=== PATIENT | female | born 1965 | race African-American/Black ===

== ENCOUNTER 2016-04-17 21:38 | Emergency (ER) | payer BC ==
[~2016-04-17] VITALS: Ht 175.3 cm; Wt 97.5 kg
[2016-04-17] MEDS ORDERED: BENZONATATE 100 MG CAPSULE. PO ONE ×2 (21:58→22:00)
[2016-04-17] MEDS ORDERED: ACETAMINOPHEN 500 MG TABLET PO ONE (22:00)
--- NOTE | 2016-04-17 22:11 | PHYS DOC ---
Adult General Chief Complaint Chief Complaint: COUGH HPI HPI Patient is a 50 year old female who presents with cough, generalized fatigue, fevers, and body aches which started yesterday. Due to worsening symptoms, the patient came to the emergency department for evaluation. Patient states that she has history of hypertension but no other significant health problems. Patient states that her temperature was 103F at home. Patient took ibuprofen prior to arrival. Patient has had nonproductive cough. Patient denies shortness of breath or chest pain currently. Patient denies any nausea or vomiting. Patient rates the pain related to her body aches as 8 out of 10 on my evaluation. Review of Systems Review of Systems Constitutional: Fever, chills [] Eyes: Denies change in visual acuity, redness, or eye pain [] HENT: Sore throat [] Respiratory: Cough, denies shortness of breath [] Cardiovascular: Denies chest pain or edema [] GI: Denies abdominal pain, nausea, vomiting, bloody stools or diarrhea [] : Denies dysuria or hematuria [] Musculoskeletal: Body aches, Denies back pain or joint pain [] Integument: Denies rash or skin lesions [] Neurologic: Headache, denies focal weakness or sensory changes [] Endocrine: Denies polyuria or polydipsia [] Current Medications Current Medications Current Medications Medications (Trade) Dose Ordered Sig/Naheed Start Time Stop Time Status Last Admin Dose Admin Acetaminophen (Tylenol) 1,000 mg 1X ONCE 04/17/16 22:00 04/17/16 22:20 DC 04/17/16 22:13 1,000 MG Benzonatate (Tessalon Perle) 200 mg 1X ONCE 04/17/16 22:00 04/17/16 22:20 DC 04/17/16 22:13 200 MG Oseltamivir Phosphate (Tamiflu) 75 mg 1X ONCE 04/17/16 22:45 04/17/16 22:46 DC 04/17/16 22:52 75 MG Allergies Allergies Allergies Coded Allergies Type Severity Reaction Last Updated Verified No Known Drug Allergies 04/17/16 No Physical Exam Physical Exam Constitutional: Alert, afebrile, appears ill. [] HENT: Normocephalic, atraumatic, bilateral external ears normal, oropharynx moist, no oral exudates, nose normal. [] Eyes: PERRLA, EOMI, conjunctiva normal, no discharge. [] Neck: Normal range of motion, no tenderness, supple, no stridor. [] Cardiovascular: Tachycardia, regular rhythm, no murmur [] Lungs & Thorax: Bilateral breath sounds clear to auscultation [] Abdomen: Bowel sounds normal, soft, no tenderness, no masses, no pulsatile masses. [] Skin: Warm, dry, no erythema, no rash. [] Back: No tenderness, no CVA tenderness. [] Extremities: No tenderness, no cyanosis, no clubbing, ROM intact, no edema. [] Neurologic: Alert and oriented X 3, normal motor function, normal sensory function, no focal deficits noted. [] Current Patient Data Vital Signs Vital Signs Date Time Temp Pulse Resp B/P Pulse Ox O2 Delivery O2 Flow Rate FiO2 04/17/16 22:16 101.9 113 20 136/83 98 Room Air 101.9 Lab Values Laboratory Tests Test 04/17/16 21:58 Influenza Type A Antigen Positive (NEGATIVE) Influenza Type B Antigen Negative (NEGATIVE) EKG EKG Not performed [] Radiology/Procedures Radiology/Procedures Two-view chest x-ray interpreted by me: No infiltrates, no effusions, normal cardiac silhouette [] Course & Med Decision Making Course & Med Decision Making Pertinent Labs and Imaging studies reviewed. (See chart for details) Patient tested positive for influenza A. Patient was given Tamiflu in the emergency department as she is currently in the treatment window. The patient was written for Tessalon Perles, ibuprofen and Tamiflu for continued outpatient treatment. Advise follow-up in 2 days with primary doctor and return to emergency department for any worsening symptoms. Patient voiced understanding and in agreement with treatment plan. Dragon Disclaimer Dragon Disclaimer This electronic medical record was generated, in whole or in part, using a voice recognition dictation system. Departure Departure Impression: Primary Impression: Influenza A Disposition: 01 HOME, SELF-CARE Condition: IMPROVED Referrals: NO PCP (PCP) Patient Instructions: Influenza, Adult Additional Instructions: Follow-up with her doctor in 2-3 days. Return to the emergency department for any worsening symptoms. Scripts Benzonatate (Tessalon Perle)100 Mg [id number] Mg PO TID PRN COUGH #30 CAP Prov:PRINCESS PELAYO MD 04/17/16 Ibuprofen 600 Mg [id number] Mg PO PRN Q6HRS PRN INFLAMMATION #30 TAB Prov:PRINCESS PELAYO MD 04/17/16 Oseltamivir Phosphate (Tamiflu)75 Mg Capsule1 Cap PO BID #10 CAP Prov:PRINCESS PELAYO MD 04/17/16 PRINCESS PELAYO MD Apr 17, 2016 22:11
[2016-04-17 22:16] VITALS: BP 136/83
[2016-04-17 22:35] LABS: OBC FLU VALID
[2016-04-17] MEDS ORDERED: OSELTAMIVIR 75 MG CAPSULE PO ONE (22:45)
[2016-04-17] MEDS ORDERED: IBUP-1007 PO (22:53)
[2016-04-17] MEDS ORDERED: OSEL75CA PO (22:53)
[2016-04-17] MEDS ORDERED: BENZ100C PO (22:54)
--- NOTE | 2016-04-18 08:01 | RAD ---
Chest, 2 views, 04/17/2016: History: Flulike symptoms The heart size is normal. The lungs are clear. There is no evidence of pleural fluid. IMPRESSION: No acute cardiopulmonary abnormality is detected.
== END 2016-04-17 23:10 | disposition home or self-care (01) ==
LOC: ER 21:38
DX: J09.X2 Influenza due to identified novel influenza A virus with other respiratory manifestations (principal); I10 Essential (primary) hypertension
CPT/HCPCS: 71020; 87804; 99285-25

== ENCOUNTER 2017-04-04 02:13 | Emergency (ER) | payer SELFPAY, BC ==
[2017-04-04] MEDS: HYDROcodone/APAP 5/325MG 1 TAB TABLET PO (02:32)
[2017-04-04] MEDS: KETOROLAC 30 MG/ML INJ. IM (02:33)
[2017-04-04] MEDS: ORPHENADRINE CITRATE 60 MG/2 ML VIAL. IM (02:34)
== END 2017-04-04 04:31 | disposition home or self-care (01) ==
LOC: ER 02:13
DX: S39.012A Strain of muscle, fascia and tendon of lower back, initial encounter (principal); M54.41 Lumbago with sciatica, right side; I10 Essential (primary) hypertension; Z90.49 Acquired absence of other specified parts of digestive tract; Z90.710 Acquired absence of both cervix and uterus; X58.XXXA Exposure to other specified factors, initial encounter; Y93.43 Activity, gymnastics; Y92.39 Other specified sports and athletic area as the place of occurrence of the external cause; Y99.8 Other external cause status
CPT/HCPCS: 96372; 99284-25; J1885; J2360